=== PATIENT | female | born 1965 | race Caucasian/White ===

== ENCOUNTER 2019-11-23 12:56 | Outpatient (CLI) | payer MEDICARE, MEDICAID, SELFPAY ==
--- NOTE | 2019-11-23 14:08 | ECHO_ITS ---
Patient Info Name: Kimberley Ellsworth Age: 54 years : 1965 Gender: Female Ht: 58 in Wt: 148 lbs BSA: 1.69 m2 HR: 73 bpm BP: 116 / 73 mmHg Technical Quality: Good Exam Date: 11/23/2019 2:14 PM Exam Location: [facility] Patient Status: Outpatient Admit Date: 11/23/2019 Staff Ordering Physician: Bridger Chao DO Director Of Design: Maria Elena Orellana RDCS Attending Provider: Bridger Chao DO Referring Physician: Zhanna MIGUEL; Exam Type: CA echo doppler color flow Study Info Indications R06.00 - Dyspnea, unspecified Complete two-dimensional, color flow and Doppler transthoracic echocardiogram is performed. Summary 1. Complete two-dimensional, color flow and Doppler transthoracic echocardiogram is performed. 2. Left ventricular chamber dimension is normal. 3. Left ventricular systolic function is normal, estimated at 60-65%. 4. The left ventricular diastolic function is abnormal. 5. E/e' 14 is mildly elevated. 6. There is trace mitral valve regurgitation. 7. There is mild tricuspid valve regurgitation. 8. No pulmonary hypertension, estimated pulmonary arterial systolic pressure is 30 mmHg. 9. There is trace pulmonic regurgitation. 10. There is small circumferential pericardial effusion measuring up to 0.7 cm posteriorly. Left Ventricle E/e' 14 is mildly elevated. Left ventricular chamber dimension is normal. Left ventricular systolic function is normal, estimated at 60-65%. The left ventricular diastolic function is abnormal. Right Ventricle Right ventricular chamber dimension is normal. Right ventricular systolic function is normal. Left Atria Left atrial chamber dimension is normal. Right Atria Right atrial chamber dimension is normal. Aortic Valve The aortic valve is trileaflet. There is no aortic valve stenosis. There is no aortic valve regurgitation. Pulmonic Valve There is trace pulmonic regurgitation. Mitral Valve There is no mitral valve stenosis. There is trace mitral valve regurgitation. Tricuspid Valve There is mild tricuspid valve regurgitation. No pulmonary hypertension, estimated pulmonary arterial systolic pressure is 30 mmHg. Pericardium/Pleural There is small circumferential pericardial effusion measuring up to 0.7 cm posteriorly. Inferior Vena Cava Normal inferior vena cava with >50% collapse upon inspiration consistent with normal right atrial pressure, 5 mmHg. Aorta The aortic root size at the sinus of Valsalva is normal. Left Ventricular Outflow Tract Name Value Normal LVOT 2D LVOT Diameter 2.0 cm LVOT Doppler LVOT Peak Gradient 3 mmHg LVOT Mean Gradient 2 mmHg LVOT VTI 20 cm LVOT VTI/AV VTI Ratio 0.7 LVOT Stroke Volume 62 ml LVOT CO 12.1 l/min LVOT CI 7.1 l/min/m2 Pulmonic Valve Name Value
--- NOTE | 2019-11-23 14:26 | PCRCNOTE ---
PT CAME IN FOR PULMONARY FUNCTION TEST AND WAS UNABLE TO DO TESTING, SHE WAS NOT ABLE TO FOLLOW DIRECTIONS FOR TESTING DESPITE MANY ATTEMPTS AND GOOD PT EFFORT.
== END 2019-11-23 12:57 | disposition home or self-care (01) ==
LOC: ANHCARD 12:58
PROVIDERS: PCP Internal Medicine; Visit Provider Internal Medicine
DX: R06.00 Dyspnea, unspecified (principal)
CPT/HCPCS: 93306

== ENCOUNTER 2020-04-23 15:53 | Outpatient (CLI) | payer MEDICARE, MEDICAID, SELFPAY ==
[2020-04-23 16:36] LABS: Erythrocyte Sedimentation Rate 24 mm/hr (0-20)
[2020-04-23 17:33] LABS: Rheumatoid Factor < 8.6 IU/ML (<12)
[2020-04-26 13:29] LABS: Scleroderma 70 Antibody <1.0
== END 2020-04-23 15:54 | disposition home or self-care (01) ==
LOC: ANHLAB 15:55
PROVIDERS: PCP Internal Medicine; Visit Provider Internal Medicine
DX: M79.10 Myalgia, unspecified site (principal)
CPT/HCPCS: 36415; 85652; 86038; 86235; 86430

== ENCOUNTER 2020-07-21 14:44 | Outpatient (CLI) | payer MEDICARE, MEDICAID, SELFPAY ==
[2020-07-21 15:10] LABS: Basophils Absolute Auto 0.1 K/mm3 (0.0-0.1); Eosinophils Absolute Auto 0.5 K/mm3 (0-0.3); Eosinophils Percent Auto 10.9 % (0-4.4); Hematocrit 39.7 % (37.0-47.0); Hemoglobin 13.2 g/dL (12.0-15.0); Immature Granulocyte Absolute 0.01 K/mm3 (0.00-0.031); Immature Granulocyte Percent A 0.2 % (0-0.5); Lymphocytes Absolute Auto 1.02 K/mm3 (0.9-3.2); Lymphocytes Percent Auto 21.3 % (18.3-44.2); Mean Corpuscular HGB Conc 33.2 g/dl (32-36); Mean Corpuscular Volume 87.3 fl (80-100); Mean Platelet Volume 12.9 fl (7.4-10.4); Monocytes Absolute Auto 0.3 K/mm3 (0.1-0.6); Monocytes Percent Auto 6.9 % (2.6-8.5); Neutrophils Absolute Auto 2.9 K/mm3 (1.3-6.7); Neutrophils Percent Auto 59.7 % (45.5-73.1); Platelet Count Result 172 k/mm3 (150-375); Red Blood Count 4.55 M/mm3 (4.2-5.4); Red Cell Distribution Width 12.9 % (11.5-14.5); White Blood Count 4.8 K/mm3 (4.5-10.0)
[2020-07-21 16:40] LABS: Alanine Aminotransferase 91 U/L (4-35); Albumin Level 4.4 g/dL (3.5-5.1); Alkaline Phosphatase 71 U/L (38-126); Anion Gap 11 mmol/L (8-16); Aspartate Amino Transferase 63 U/L (14-36); Bilirubin,Total 0.5 mg/dL (0.2-1.3); Blood Urea Nitrogen 11 mg/dL (7-17); Carbon Dioxide 25 mmol/L (22-30); Chloride 106 mmol/L (98-107); Estimated Glomerular Filt Rate > 60; Glucose 98 mg/dL (65-105); Potassium 4.1 mmol/L (3.4-5.0); Sodium 142 mmol/L (137-145)
[2020-07-21 17:17] LABS: Vitamin D 25 Hydroxy 45.2 ng/mL
[2020-07-21 17:48] LABS: Folic Acid > 20.0 ng/mL (2.76->20)
[2020-07-21 19:20] LABS: Iron 65 ug/dL (37-170); Percent Iron Saturation 25 % (20-50)
== END 2020-07-21 14:45 | disposition home or self-care (01) ==
LOC: ANHLAB 14:50
PROVIDERS: PCP Internal Medicine; Visit Provider Internal Medicine
DX: E55.9 Vitamin D deficiency, unspecified (principal); R53.83 Other fatigue; D50.9 Iron deficiency anemia, unspecified
CPT/HCPCS: 36415; 80053; 82306; 82607; 82746; 83540; 83550; 84443; 85025

== ENCOUNTER 2020-11-24 15:22 | Emergency (ER) | payer MEDICARE, MEDICAID, SELFPAY ==
--- NOTE | ~2020-11-24 | CT_ITS ---
EXAMINATION: CT brain wo con DATE: 11/24/2020 19:15 INDICATION: Headache. Dizziness. TECHNIQUE: Computed tomography (CT) of the head was performed without intravenous contrast. The mA wa s adjusted according to patient size. Iterative reconstruction technique was employed. The dose-lengt h product was 529.67 mGy-cm. COMPARISON: Head CT 05/19/2016 FINDINGS: There is no intracranial hemorrhage, acute infarction, or abnormal intracranial mass lesion . The ventricles are normal in size. The paranasal sinuses are clear. The orbits are normal. The mast oid air cells are normal. IMPRESSION: 1. Normal brain. Reviewed, dictated and finalized at location A. IMPRESSION: 1. Normal brain.
[2020-11-24 15:45] VITALS: BP 103/65; PULSE 58; RESP 16; TEMP 36.6; O2SAT 100
--- NOTE | 2020-11-24 15:50 | ECG_ITS ---
Measurements Intervals [place] Rate: 57 P: 40 KS: 144 QRS: 14 QRSD: 82 T: 35 QT: 409 QTc: 401 Interpretive Statements SINUS BRADYCARDIA LOW QRS VOLTAGE IN PRECORDIAL LEADS BASELINE ARTIFACT- II, III, AVF BORDERLINE ECG Electronically Signed On 11-24-2020 20:10:38 CDT by Wayne Chapa D.O.
[2020-11-24 16:15] LABS: Basophils Percent Auto 0.5 % (0.2-1.2); Eosinophils Absolute Auto 0.3 K/mm3 (0-0.3); Eosinophils Percent Auto 7.2 % (0-4.4); Hematocrit 43.7 % (37.0-47.0); Hemoglobin 14.3 g/dL (12.0-15.0); Immature Granulocyte Absolute 0.01 K/mm3 (0.00-0.031); Immature Granulocyte Percent A 0.2 % (0-0.5); Lymphocytes Absolute Auto 0.89 K/mm3 (0.9-3.2); Lymphocytes Percent Auto 21.5 % (18.3-44.2); Mean Corpuscular HGB Conc 32.7 g/dl (32-36); Mean Corpuscular Hemoglobin 29.9 pg (26-34); Mean Corpuscular Volume 91.2 fl (80-100); Mean Platelet Volume 12.8 fl (7.4-10.4); Monocytes Absolute Auto 0.2 K/mm3 (0.1-0.6); Monocytes Percent Auto 5.1 % (2.6-8.5); Neutrophils Absolute Auto 2.7 K/mm3 (1.3-6.7); Neutrophils Percent Auto 65.5 % (45.5-73.1); Platelet Count Result 164 k/mm3 (150-375); Red Blood Count 4.79 M/mm3 (4.2-5.4); Red Cell Distribution Width 12.6 % (11.5-14.5); White Blood Count 4.1 K/mm3 (4.5-10.0)
[2020-11-24 16:27] LABS: Anion Gap 10 mmol/L (8-16); Blood Urea Nitrogen 14 mg/dL (7-17); Calcium 9.7 mg/dL (8.4-10.2); Carbon Dioxide 30 mmol/L (22-30); Chloride 102 mmol/L (98-107); Estimated Glomerular Filt Rate > 60; Glucose 98 mg/dL (65-110); Sodium 142 mmol/L (137-145)
[2020-11-24 17:32] VITALS: BP 107/64; PULSE 66; RESP 18; TEMP 36.2; O2SAT 98
[2020-11-24 18:34] VITALS: BP 114/79; PULSE 65; RESP 18; O2SAT 100
--- NOTE | 2020-11-24 19:08 | ED.DIZZY ---
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 Apparently in the office patient had hypotension and complaints of lightheadedness so was sent here for further evaluation. Patient denies fever, no cough, no increased shortness of breath, patient has not passed out. No vertigo, does states she was in the storage room and she fell backwards the other day when she got lightheaded. On arrival patient's blood pressure is 110/70 pulse in the 50s to 60s. Afebrile alert and well-appearing. No vomiting, no headache. G-tube in place and tolerating feeds. Patient has multiple specialist due to her chronic disease including patient has an appoint with neurology next week. Family denies new medications. Patient says no palpitations. MD elicited complaint: lightheadedness and disequilibrium Onset (ago): week(s) (1) Timing: intermittent Severity: mild Description: lightheadedness and off-balance History of similar symptoms: No Exacerbating factors: movement/ambulation Related Data Home Medications Medication Instructions Recorded Confirmed cholecalciferol (vitamin D3) 1,250 1,250 mcg PO MONTHLY 05/21/19 11/24/20 mcg (50,000 unit) capsule esomeprazole magnesium 40 mg 40 mg PO BID cap 05/21/19 11/24/20 capsule,delayed release fluoxetine 40 mg capsule 80 mg PO QAM cap 05/21/19 11/24/20 inhalational spacing device #1 each 05/21/19 11/24/20 peg 3350-electrolytes 236 75 - 500 ml PO BID ml 05/21/19 11/24/20 gram-22.74 gram-6.74 gram-5.86 gram solution pregabalin 150 mg capsule 150 mg PO BID 05/21/19 11/24/20 wound dressings 1 applic TOPICAL DAILY 05/21/19 11/24/20 quetiapine 150 mg tablet,extended 50 mg PO TID tablet 05/22/19 11/24/20 release 24 hr topiramate 50 mg tablet 100 mg PO BID tablet 05/22/19 11/24/20 coagulation factor VIIa recomb IV 12/25/19 11/24/20 [Novoseven RT] food supplemt, lactose-reduced FEEDING TUBE 12/25/19 11/24/20 [Jevity 1 Roberth] naltrexone 50 mg tablet 50 mg PO DAILY 11/24/20 11/24/20 Allergies Allergy/AdvReac Type Severity Reaction Status Date / Time metoclopramide Allergy Severe SWELLING Verified 11/24/20 13:45 OF TONGUE droperidol Allergy Intermediate Swelling Verified 11/24/20 13:45 valproic acid Allergy Intermediate Swelling Verified 11/24/20 13:45 adhesive tape Allergy Unknown unknown Verified 11/24/20 13:45 aspirin Allergy Unknown bleeding Verified 11/24/20 13:45 glucagon Allergy Unknown unknown Verified 11/24/20 13:45 oxcarbazepine Allergy Unknown elevated Verified 11/24/20 13:45 liver enzymes quetiapine Allergy Unknown unknown Verified 11/24/20 13:45 risperidone Allergy Unknown unknown Verified 11/24/20 13:45 sulfamethizole Allergy Unknown unknown Verified 11/24/20 13:45 trimethoprim Allergy Unknown unknown Verified 11/24/20 13:45 BLOOD PRODUCTS Allergy Severe Anaphylactic Uncoded 10/15/20 14:23 Shock FRESH FOZEN PLASMA Allergy Severe DIFFUCULTY Uncoded 10/15/20 14:23 BREATH AND THROAT CLOSING CLEAR TAPE Allergy Intermediate LIPS AND Uncoded 10/15/20 14:23 TONGUE SWELL SILK TAPE Allergy Intermediate LIPS AND Uncoded 10/15/20 14:23 TONGUE SWELLING METOCLOPRAMIDE HCL Allergy Unknown unknown Uncoded 10/15/20 14:23 Review of Systems Review of Systems: CONSTITUTIONAL: no fever, no weight loss, no confusion EYES: no vision changes, no eye pain ENT: no rhinorrhea, no sore throat, no difficulty swallowing CARDIOVASCULAR: no chest pain, no leg edema, no palpitations RESPIRATORY: no cough, no shortness of breath, no hemoptysis GASTROINTESTINAL: no abdomina
[2020-11-24 20:11] VITALS: BP 133/68; PULSE 50; RESP 16; O2SAT 98
== END 2020-11-24 20:15 | disposition home or self-care (01) ==
PROVIDERS: Emergency Medicine; Emergency Provider Emergency Medicine; PCP Internal Medicine
DX: I95.9 Hypotension, unspecified (principal); R42 Dizziness and giddiness; F41.9 Anxiety disorder, unspecified; F31.9 Bipolar disorder, unspecified; G80.9 Cerebral palsy, unspecified; Q79.60 Ehlers-Danlos syndrome, unspecified; D66 Hereditary factor VIII deficiency; M81.0 Age-related osteoporosis without current pathological fracture; Z79.899 Other long term (current) drug therapy; Z86.2 Personal history of diseases of the blood and blood-forming organs and certain disorders involving the immune mechanism; Z93.1 Gastrostomy status; Z86.718 Personal history of other venous thrombosis and embolism; Z86.19 Personal history of other infectious and parasitic diseases
CPT/HCPCS: 36415; 70450; 80048; 85025; 93005; 99284

== ENCOUNTER 2020-12-10 14:23 | Outpatient (CLI) | payer OTHER, SELFPAY ==
--- NOTE | 2020-12-14 14:48 | WPDHOLTEREM ---
Holter/Event Monitor Holter/Event Monitor Date of procedure: 12/10/20 Holter/Event Procedure: 24 Hr Holter Monitor Indications: Hypotenstion Conclusion: 1. 24 hour holter monitor on 12/10/20. 2. Underlying rhythm is sinus rhythm. HR range 43-111 bpm; average HR 63 bpm. 3. There are 3 premature supraventricular complexes and 4 supraventricular couplets. No supraventricular tachycardia. 4. There are 9 premature ventricular complexes. No ventricular tachycardia. 5. No sinoatrial or atrioventricular blocks. No significant pauses greater than 2 seconds. 6. No symptoms available for correlation.
== END 2020-12-10 14:24 | disposition home or self-care (01) ==
PROVIDERS: PCP Internal Medicine; Visit Provider Physician Assistant
DX: I95.9 Hypotension, unspecified (principal); R00.1 Bradycardia, unspecified
CPT/HCPCS: 93225; 93226

== ENCOUNTER 2020-12-15 09:34 | Outpatient (CLI) | payer MEDICARE, MEDICAID, SELFPAY | END 2020-12-15 09:35 | disposition home or self-care (01) | PROVIDERS: PCP Internal Medicine; Visit Provider Physician Assistant | DX: I95.9 Hypotension, unspecified (principal) | CPT/HCPCS: 36415; 82533 ==

== ENCOUNTER 2023-07-13 14:05 | Outpatient (CLI) | payer MEDICARE, MEDICAID, SELFPAY ==
--- NOTE | ~2023-07-13 | DEXA_ITS ---
Bone Density Report Name: ANGIE WALTER Age: 58 Sex: Female Ethnicity: White Date of : 1965 Indication: postmenopausal; screening for osteoporosis; prior fracture; asthma or emphysema; hysterectomy; secondary osteoporosis; Referring Provider: KEITH BROWNE Study: Bone densitometry was performed. Exam Date: July 13, 2023 Accession number: [id number] Bone Density: Region BMD T-score Z-score Classification AP Spine(L1, L2, L4) 0.628 -3.7 -2.6 Osteoporosis Femoral Neck (Left) 0.570 -2.5 -1.4 Osteoporosis Total Hip (Left) 0.687 -2.1 -1.3 Osteopenia Femoral Neck (Right) 0.582 -2.4 -1.3 Osteopenia Total Hip (Right) 0.703 -2.0 -1.2 Osteopenia Total Hip Mean 0.695 -2.1 -1.3 Osteopenia World Health Organization criteria for BMD impression classify patients as: Normal (T-score at or above -1.0), Osteopenia (T-score between -1.0 and -2.5), or Osteoporosis (T-score at or below -2.5). 10-year Fracture Risk: FRAX not reported because: Some T-score for Spine Total or Hip Total or Femoral Neck at or below -2.5 Prior hip or vertebral fracture Clinical Information Provided by Patient: Have had a previous hip or vertebral fracture Has had a low trauma fracture Has secondary osteoporosis Has used the following medications: Vitamin D Has the following medical conditions: Asthma or Emphysema, Hysterectomy Patient maximum height was 58 Menopause Age: 20 No regular weight bearing exercise Does not regularly consume dairy products Drinks caffeinated beverages Onset of menses at age 16 Number of children 0 Impression: The patient has established osteoporosis, based on the Total Spine T-score and the existence of a prior fracture. The patient has risk factors, including: previous fracture. Discussion: HIGH RISK OF FRACTURE. BONE DENSITY IS UNDESIRABLY LOW AT ONE OR MORE SKELETAL SITES, CONSISTENT WITH POSTMENOPAUSAL OSTEOPOROSIS. This patient's lowest T-score, in a patient who has previously fractured, meets the World Health Organization's (WHO) criteria for severe osteoporosis. In untreated patients, the risk of osteoporotic fracture increases approximately two-fold for each 1.0 SD decrease in T-score. Low bone density is not the only risk factor for fracture; also consider factors such as patient's age, frailty or poor health, risk of falling, risk of injury, previous osteoporotic fracture, family history of osteoporosis, cigarette smoking, low body weight, etc. Not everyone with low bone mineral density has osteoporosis; osteomalacia and other metabolic bone disorders should also be considered. Patients who have osteoporosis should be evaluated for specific diseases and conditions (secondary causes) that may cause or contribute to bone loss. The [place] [employer] (AACE) a
--- NOTE | ~2023-07-13 | MM_ITS ---
EXAMINATION: MM screening [place] BI w lisa HISTORY: Screening TECHNIQUE: Craniocaudal and mediolateral oblique 3-D tomosynthesis images were obtained and synthetic 2-D images were generated. CAD analysis was submitted and interpreted. COMPARISON: 12/14/2013 BREAST PARENCHYMAL COMPOSITION: Not dense: There are scattered areas of fibroglandular density. FINDINGS: There is no evidence of suspicious mass, calcification, or architectural distortion to sugg est malignancy in either breast. There has been no suspicious interval change. IMPRESSION: 1. No mammographic evidence of malignancy. 2. Recommend routine screening mammography in one year. BI-RADS Category 1: Negative Reviewed, dictated and finalized at location B.
== END 2023-07-13 14:06 | disposition home or self-care (01) ==
PROVIDERS: PCP Internal Medicine; Visit Provider Obstetrics & Gynecology Gynecology
DX: Z12.31 Encounter for screening mammogram for malignant neoplasm of breast (principal); M81.0 Age-related osteoporosis without current pathological fracture; M85.89 Other specified disorders of bone density and structure, multiple sites; Z78.0 Asymptomatic menopausal state; Z13.820 Encounter for screening for osteoporosis
CPT/HCPCS: 77063; 77067; 77080